=== PATIENT | female | born 1990 | race Caucasian/White ===

== ENCOUNTER 2018-03-28 19:37 | Emergency (ER) | payer BC ==
[2018-03-28 19:54] VITALS: BP 107/77
--- NOTE | 2018-03-28 19:59 | UC ---
Complaint Female HPI - HPI Summary HPI Summary: 27 yo female presents with UTI symptoms. She tells me that she has been having urinary frequency and burning that started earlier in the day today. Also noticed some blood in her urine. Her last UTI was about 5 months ago and felt very similar, but did not have the blood in her urine at that time. No hx of kidney stone. She is also trying to get and would like a test today. Denies fever, chills, abdominal pain, n/v/d/c, or flank pain. - History Of Current Complaint Chief Complaint: UCGU Stated Complaint: POSS UTI Time Seen by Provider: 03/28/18 19:59 Hx Obtained From: Patient Hx Last Menstrual Period: > 2 months Onset/Duration: Sudden Onset Timing: Constant Severity Initially: Moderate Severity Currently: Moderate Pain Intensity: 7 Pain Scale Used: 0-10 Numeric - Allergies/Home Medications Allergies/Adverse Reactions: Allergies Allergy/AdvReac Type Severity Reaction Status Date / Time No Known Allergies Allergy Verified 03/28/18 19:54 PMH/Surg Hx/FS Hx/Imm Hx - Additional Past Medical History Additional PMH: None Previously Healthy: Yes - Surgical History Surgical History: None - Family History Known Family History: Positive: None - Social History Occupation: Employed Full-time Lives: With Family Alcohol Use: None Substance Use Type: None Smoking Status (MU): Never Smoked Tobacco Review of Systems Constitutional: Negative Skin: Negative Respiratory: Negative Cardiovascular: Negative Gastrointestinal: Negative Genitourinary: Dysuria, Frequency Motor: Negative Neurological: Negative Psychological: Negative All Other Systems Reviewed And Are Negative: Yes Physical Exam - Summary Physical Exam Summary: GENERAL: NAD. WDWN. No pain distress. SKIN: No rashes, sores, lesions, or open wounds. NECK: Supple. Nontender. No lymphadenopathy. CHEST: CTAB. No r/r/w. No accessory muscle use. Breathing comfortably and in no distress. CV: RRR. Without m/r/g. Pulses intact. Brisk cap refill. ABDOMEN: Soft. NTTP. No distention or guarding. No organomegaly. No CVA tenderness. Bowel sounds present NEURO: Alert. CN II-XII grossly intact. PSYCH: Age appropriate behavior. Triage Information Reviewed: Yes Vital Signs: Initial Vital Signs Temp 97.1 F 03/28/18 19:49 Pulse 73 03/28/18 19:49 Resp 16 03/28/18 19:49 BP 107/77 03/28/18 19:49 Pulse Ox 100 03/28/18 19:49 Laboratory Tests 03/28/18 03/28/18 20:26 20:28 POC Urine Color Red A POC Urine Clarity Cloudy POC Urine pH 7.0 POC Ur Specif Clare 1.020 POC Urine Protein 1+ A POC Ur Glucose (UA) Negative POC Urine Ketones Negative POC Urine Blood 3+ A POC Urine Nitrite Positive A POC Urine Bilirubin Negative POC Urine Urobilinogen 0.2 POC U Leukocyte Esteras 1+ A POC Ur Test Negative Complaint Female Dx - Course Course Of Treatment: UA with signs of infection. Tx with Cipro and send urine for culture. - Differential Dx/Diagnosis Provider Diagnoses: UTI Discharge - Sign-Out/Discharge Documenting (check all that apply): Discharge/Admit/Transfer - Discharge Plan Condition: Stable Disposition: HOME Prescriptions: Ciprofloxacin TAB* [Cipro 250 MG Tab*] 250 mg PO BID #10 tab Phenazopyridine TAB* [Pyridium 100 mg TAB*] 100 mg PO TID #3 tab Patient Education Materials: Urinary Tract Infection in Women (DC) Forms: *Work Release Referrals: Hasrh Baker MD [Primary Care Provider] - Additional Instructions: If you develop a fever, shortness of breath, chest pain, new or worsening symptoms - please call your PCP or go to the ED. - Billing Disposition and Condition Condition: STABLE Disposition: Home
[2018-03-28] MEDS ORDERED: Phenazopyridine TAB* 100 MG PO ONE (20:41)
[2018-03-28] MEDS ORDERED: Phenazopyridine TAB* 100 MG ONE (20:44)
[2018-03-28] MEDS: Ciprofloxacin TAB* 500 MG PO ONE ×2 (20:51→20:52)
--- NOTE | 2018-03-31 18:00 | UC ---
- Progress Note Progress Note: Urine final with e coli sensitive to cipro - no change Discharge - Sign-Out/Discharge Documenting (check all that apply): Post-Discharge Follow Up - Discharge Plan Condition: Stable Disposition: HOME Prescriptions: Ciprofloxacin TAB* [Cipro 250 MG Tab*] 250 mg PO BID #10 tab Phenazopyridine TAB* [Pyridium 100 mg TAB*] 100 mg PO TID #3 tab Patient Education Materials: Urinary Tract Infection in Women (DC) Forms: *Work Release Referrals: Harsh Baker MD [Primary Care Provider] - Additional Instructions: If you develop a fever, shortness of breath, chest pain, new or worsening symptoms - please call your PCP or go to the ED. - Billing Disposition and Condition Condition: STABLE Disposition: Home
== END 2018-03-28 20:55 | disposition home or self-care (01) ==
LOC: UCEAST 19:37
DX: N39.0 Urinary tract infection, site not specified (principal); B96.20 Unspecified Escherichia coli [E. coli] as the cause of diseases classified elsewhere; R31.9 Hematuria, unspecified; Z16.29 Resistance to other single specified antibiotic
CPT/HCPCS: 81003; 84702; 87077; 87086; 87186; 99213; A9270-GY; G0463

== ENCOUNTER 2018-07-15 19:07 | Emergency (ER) | payer BC ==
[2018-07-15 19:47] VITALS: BP 120/67
--- NOTE | 2018-07-15 20:12 | UC ---
Complaint Female HPI - HPI Summary HPI Summary: 2 DAYS OF DYSURIA, URINARY FREQUENCY AND URGENCY. NO FEVER, NAUSEA, BACK PAIN. HAS HAD 3-4 UTIs SINCE SEPTEMBER 2017. SHE ADMITS TO HAVING HAD A LOT MORE SEX OVER THIS TIME. - History Of Current Complaint Chief Complaint: UCGU Stated Complaint: UTI Time Seen by Provider: 07/15/18 19:58 Hx Obtained From: Patient Hx Last Menstrual Period: 5 months Onset/Duration: Gradual Onset, Lasting Days, Still Present Severity Initially: Moderate Severity Currently: Moderate Pain Intensity: 5 Pain Scale Used: 0-10 Numeric Character: Burning Aggravating Factor(s): Urination Alleviating Factor(s): Nothing Associated Signs And Symptoms: Negative: Fever, Back Pain, Vaginal Bleeding/ Discharge, Vaginal Discharge, Nausea - Allergies/Home Medications Allergies/Adverse Reactions: Allergies Allergy/AdvReac Type Severity Reaction Status Date / Time No Known Allergies Allergy Verified 07/15/18 19:48 PMH/Surg Hx/FS Hx/Imm Hx Previously Healthy: Yes - Surgical History Surgical History: None - Family History Known Family History: Positive: None - Social History Alcohol Use: None Substance Use Type: None Smoking Status (MU): Never Smoked Tobacco Review of Systems Constitutional: Negative Respiratory: Negative Cardiovascular: Negative Gastrointestinal: Abdominal Pain Genitourinary: Dysuria, Frequency, Urgency All Other Systems Reviewed And Are Negative: Yes Physical Exam Triage Information Reviewed: Yes Appearance: Well-Appearing, No Pain Distress, Well-Nourished Vital Signs: Initial Vital Signs Temp 97.8 F 07/15/18 19:42 Pulse 66 07/15/18 19:42 Resp 16 07/15/18 19:42 BP 120/67 07/15/18 19:42 Pulse Ox 100 07/15/18 19:42 Vital Signs Reviewed: Yes Eyes: Positive: Conjunctiva Clear ENT: Positive: Hearing grossly normal Neck: Positive: Supple Respiratory: Positive: No respiratory distress, No accessory muscle use Cardiovascular: Positive: Pulses Normal Abdomen Description: Positive: Soft, Other: - MILD SUPRAPUBIC TENDERNESS. Negative: CVA Tenderness (R), CVA Tenderness (L), Distended, Guarding Musculoskeletal: Positive: No Edema Neurological: Positive: Alert Psychological: Positive: Age Appropriate Behavior Skin: Negative: rashes Complaint Female Dx - Course Course Of Treatment: PT IS CONCERNED THAT SHE HAS HAD 3-4 UTIs SINCE SEPTEMBER OF THIS YEAR. PATIENT ADMITS THAT SHE HAS BEEN HAVING A LOT MORE SEX THAN USUAL SHE RECENTLY BECAME ENGAGED TO HER BOYFRIEND OF ABOUT 1 YEAR. THE FREQUENCY OF UTI DOES CORRELATE WITH THE LENGTH OF TIME OF THIS RELATIONSHIP. ADVISED THAT HER UTIs ARE LIKELY A RESULT OF A LOT OF SEX SHE DID NOT HAVE TROUBLE WITH RECURRENT UTI BEFORE THIS TIME. COUNSELED ON HYGIENE AND HYDRATION. POSTCOITAL VOIDING. PATIENT WILL FOLLOW-UP WITH UROLOGY IF DESIRED. URINE SENT FOR CULTURE AND ALSO FOR UREAPLASMA AND MYCOPLASMA. - Differential Dx/Diagnosis Provider Diagnoses: UTI Discharge - Sign-Out/Discharge Documenting (check all that apply): Patient Departure All imaging exams completed and their final reports reviewed: No Studies - Discharge Plan Condition: Stable Disposition: HOME Prescriptions: Phenazopyridine TAB* [Pyridium TAB*] 200 mg PO TID #6 tab Sulfamethox/Trimethoprim DS* [Bactrim DS 800/160 TAB*] 1 tab PO BID #10 tab Patient Education Materials: Urinary Tract Infection in Women (ED) Referrals: [facility] [Provider Group] - If Needed Harsh Baker MD [Primary Care Provider] - If Needed - Billing Disposition and Condition Condition: STABLE Disposition: Home
== END 2018-07-15 20:37 | disposition home or self-care (01) ==
LOC: UCEAST 19:07
DX: N39.0 Urinary tract infection, site not specified (principal); Z87.440 Personal history of urinary (tract) infections
CPT/HCPCS: 81003; 84702; 87086; 87798; 99212; G0463